=== PATIENT | male | born 1940 | race Caucasian/White ===

== ENCOUNTER 2020-08-01 16:24 | Inpatient (IN) ==
[2020-08-01 18:03] LABS: ABS Lymphocytes 0.6 10^3/ul (1.0-4.8); ABS Monocytes 0.5 10^3/ul (0-0.8); ABS Neutrophils 3.1 10^3/ul (1.5-7.7); Eosinophil % 0.1 %; Hematocrit 40 % (42-52); Hemoglobin 13.6 g/dL (14.0-18.0); Lymphocyte % 14.5 %; Mean Corpuscular HGB Conc 34 g/dL (31-36); Mean Corpuscular Hemoglobin 30 pg (27-31); Mean Corpuscular Volume 87 fL (80-94); Mean Platelet Volume 7.7 fL (7.4-10.4); Platelet Count 214 10^3/uL (150-450); Red Blood Count 4.61 10^6 /uL (4.18-5.48); Red Cell Distribution Width 15 % (10-15); White Blood Count 4.2 10^3/uL (3.5-10.8)
[2020-08-01 19:16] LABS: Potassium 4.8 mmol/L (3.5-5.0)
[2020-08-01 19:18] LABS: EGFR African American 90.1 (>60); EGFR Non-African American 74.5 (>60)
[2020-08-01 19:19] LABS: Albumin 3.6 g/dL (3.2-5.2); Calcium 9.1 mg/dL (8.6-10.3); Total Protein 6.5 g/dL (6.4-8.9)
[2020-08-01 19:21] LABS: Total Bilirubin 0.4 mg/dL (0.2-1.0)
[2020-08-01 19:25] LABS: BUN/Creatinine Ratio 27.8 (8-20)
[2020-08-01 19:26] LABS: Albumin/Globulin Ratio 1.3 (1-3); Globulin 2.8 g/dL (2-4)
[2020-08-01 20:40] LABS: Urine Appearance Cloudy; Urine Bilirubin Negative (Negative); Urine Blood Negative (Negative); Urine Color Yellow; Urine Glucose 1+(50 mg/dL) (Negative); Urine Ketones Negative (Negative); Urine Nitrite Negative (Negative); Urine Protein Negative (Negative); Urine Urobilinogen Negative (Negative)
[2020-08-01 20:46] LABS: Urine Bacteria Absent (Absent); Urine Red Blood Cell Absent (Absent); Urine White Blood Cell Trace(0-5/hpf) (Absent)
[2020-08-01] MEDS ORDERED: Ondansetron 4 mg VIAL 2 MG/ML 2 ml VIAL IV PRN (20:52)
[2020-08-01] MEDS ORDERED: Dextrose 50% Syringe 50 ml 25 GM/50 ML SYRINGE IV PUSH PRN (20:52)
[2020-08-01] MEDS ORDERED: Remdesivir 5 MG/ML LIQ IV Vial 200 MG in NS 0.9% 250 ml 210 ML IV ONE (20:52)
[2020-08-01] MEDS ORDERED: Albuterol 2.5mg/3 ml (0.083%) NEB.SOLN INH PRN (20:57)
[2020-08-01] MEDS ORDERED: NS 0.9% 1000 ml BAG 1,000 ML IV SCH (21:00)
[2020-08-01] MEDS ORDERED: Albuterol HFA INHALER 8 gm MDI INH PRN (21:12)
[2020-08-02] MEDS: Heparin 5000 UNITS/ML 1 mL VIAL SUBCUT SCH ×4 (00:50→21:14)
[2020-08-02] MEDS: Nystatin TOP POWDER 15 GM BTL TOPICAL SCH ×4 (00:50→21:14)
[2020-08-02 02:40] LABS: Activated Partial Thrombo Time 33.1 seconds (26.0-38.0); INR 1.21 (0.82-1.09)
[2020-08-02 06:38] LABS: ABS Lymphocytes 0.4 10^3/ul (1.0-4.8); ABS Monocytes 0.3 10^3/ul (0-0.8); ABS Neutrophils 5.7 10^3/ul (1.5-7.7); Hematocrit 41 % (42-52); Hemoglobin 13.8 g/dL (14.0-18.0); Lymphocyte % 6.5 %; Mean Corpuscular HGB Conc 34 g/dL (31-36); Mean Corpuscular Hemoglobin 29 pg (27-31); Mean Corpuscular Volume 87 fL (80-94); Mean Platelet Volume 8.1 fL (7.4-10.4); Nucleated Red Blood Cells % 0.1; Platelet Count 199 10^3/uL (150-450); Red Blood Count 4.69 10^6 /uL (4.18-5.48); Red Cell Distribution Width 15 % (10-15); White Blood Count 6.4 10^3/uL (3.5-10.8)
[2020-08-02 06:49] LABS: INR 1.21 (0.82-1.09)
[2020-08-02 06:51] LABS: Anion Gap 9 mmol/L (2-11); BUN/Creatinine Ratio 29.3 (8-20); Blood Urea Nitrogen 24 mg/dL (6-24); CO2 Carbon Dioxide 23 mmol/L (22-32); Calcium 8.8 mg/dL (8.6-10.3); Chloride 99 mmol/L (101-111); EGFR African American 109.4 (>60); EGFR Non-African American 90.4 (>60); Glucose 261 mg/dL (70-100); Potassium 4.7 mmol/L (3.5-5.0); Sodium 131 mmol/L (135-145)
[2020-08-02] MEDS: Mometasone/Formoter 100/5 MDI INH SCH ×2 (07:54→19:47)
[2020-08-02] MEDS: Insulin GLARGINE 100 un/ml 10 ml VIAL SUBCUT SCH ×2 (09:33→21:15)
[2020-08-02] MEDS: DULoxetine DR 30 mg CAP PO SCH (09:35)
[2020-08-02 10:07] LABS: C Reactive Protein 56.22 mg/L (<8.01)
[2020-08-02 10:09] LABS: Total Iron Binding Capacity 293 mcg/dL (250-450); Transferrin 209 mg/dL (203-362)
[2020-08-02 10:14] LABS: % Iron Saturation 7 % (15-55); Iron < 20 ug/dL (50-212); Unsaturated Iron Binding < 278 ug/dL
[2020-08-02 10:25] LABS: Ferritin 188.9 ng/mL (24-336)
[2020-08-02] MEDS: Remdesivir 5 MG/ML LIQ IV Vial 100 MG in NS 0.9% 250 ml 230 ML IV SCH (21:15)
[2020-08-03] MEDS: Heparin 5000 UNITS/ML 1 mL VIAL SUBCUT SCH ×3 (05:56→20:11)
[2020-08-03 08:08] LABS: ABS Lymphocytes 0.7 10^3/ul (1.0-4.8); ABS Monocytes 0.8 10^3/ul (0-0.8); ABS Neutrophils 5.5 10^3/ul (1.5-7.7); Hematocrit 39 % (42-52); Lymphocyte % 9.4 %; Mean Corpuscular HGB Conc 34 g/dL (31-36); Mean Corpuscular Hemoglobin 29 pg (27-31); Mean Corpuscular Volume 87 fL (80-94); Mean Platelet Volume 8.2 fL (7.4-10.4); Platelet Count 226 10^3/uL (150-450); Red Blood Count 4.48 10^6 /uL (4.18-5.48); Red Cell Distribution Width 15 % (10-15); White Blood Count 6.9 10^3/uL (3.5-10.8)
[2020-08-03] MEDS: Mometasone/Formoter 100/5 MDI INH SCH ×2 (08:17→20:16)
[2020-08-03 08:26] LABS: BUN/Creatinine Ratio 31.3 (8-20); Calcium 8.7 mg/dL (8.6-10.3); EGFR African American 107.9 (>60); EGFR Non-African American 89.1 (>60); Potassium 4.2 mmol/L (3.5-5.0)
[2020-08-03] MEDS: DULoxetine DR 30 mg CAP PO SCH (09:34)
[2020-08-03] MEDS: Insulin GLARGINE 100 un/ml 10 ml VIAL SUBCUT SCH ×2 (09:35→20:14)
[2020-08-03] MEDS: Nystatin TOP POWDER 15 GM BTL TOPICAL SCH ×3 (11:23→20:16)
[2020-08-03] MEDS: Remdesivir 5 MG/ML LIQ IV Vial 100 MG in NS 0.9% 250 ml 230 ML IV SCH (20:18)
[2020-08-04] MEDS: Heparin 5000 UNITS/ML 1 mL VIAL SUBCUT SCH ×3 (05:48→20:52)
[2020-08-04 07:07] LABS: ABS Lymphocytes 0.6 10^3/ul (1.0-4.8); ABS Monocytes 0.8 10^3/ul (0-0.8); ABS Neutrophils 4.9 10^3/ul (1.5-7.7); Hematocrit 39 % (42-52); Hemoglobin 13.3 g/dL (14.0-18.0); Lymphocyte % 9.7 %; Mean Corpuscular HGB Conc 34 g/dL (31-36); Mean Corpuscular Hemoglobin 29 pg (27-31); Mean Corpuscular Volume 86 fL (80-94); Mean Platelet Volume 8.7 fL (7.4-10.4); Platelet Count 241 10^3/uL (150-450); Red Blood Count 4.53 10^6 /uL (4.18-5.48); Red Cell Distribution Width 15 % (10-15); White Blood Count 6.3 10^3/uL (3.5-10.8)
[2020-08-04] MEDS: Mometasone/Formoter 100/5 MDI INH SCH ×2 (08:06→19:33)
[2020-08-04] MEDS: DULoxetine DR 30 mg CAP PO SCH (09:04)
[2020-08-04] MEDS: Insulin GLARGINE 100 un/ml 10 ml VIAL SUBCUT SCH ×2 (09:04→20:50)
[2020-08-04] MEDS: Nystatin TOP POWDER 15 GM BTL TOPICAL SCH ×3 (12:59→20:44)
[2020-08-04] MEDS ORDERED: Benzocaine/Menthol LOZ PO PRN (18:13)
[2020-08-04] MEDS: Remdesivir 5 MG/ML LIQ IV Vial 100 MG in NS 0.9% 250 ml 230 ML IV SCH (20:44)
[2020-08-04] MEDS ORDERED: Insulin GLARGINE 100 un/ml 10 ml VIAL SUBCUT SCH (21:00)
[2020-08-04] MEDS ORDERED: Dextrose 50% Syringe 50 ml 25 GM/50 ML SYRINGE IV PUSH PRN (21:31)
[2020-08-05] MEDS: Heparin 5000 UNITS/ML 1 mL VIAL SUBCUT SCH ×3 (05:38→20:56)
[2020-08-05] MEDS: Mometasone/Formoter 100/5 MDI INH SCH ×2 (07:51→21:35)
[2020-08-05] MEDS: DULoxetine DR 30 mg CAP PO SCH (08:33)
[2020-08-05] MEDS: Insulin GLARGINE 100 un/ml 10 ml VIAL SUBCUT SCH ×2 (08:38→20:49)
[2020-08-05] MEDS: Nystatin TOP POWDER 15 GM BTL TOPICAL SCH ×3 (08:39→21:40)
[2020-08-05] MEDS: Remdesivir 5 MG/ML LIQ IV Vial 100 MG in NS 0.9% 250 ml 230 ML IV SCH (20:56)
[2020-08-06] MEDS: Heparin 5000 UNITS/ML 1 mL VIAL SUBCUT SCH ×2 (05:14→12:43)
[2020-08-06] MEDS: Mometasone/Formoter 100/5 MDI INH SCH (08:16)
[2020-08-06] MEDS: Insulin GLARGINE 100 un/ml 10 ml VIAL SUBCUT SCH (09:52)
[2020-08-06] MEDS: DULoxetine DR 30 mg CAP PO SCH (09:53)
[2020-08-06] MEDS: Nystatin TOP POWDER 15 GM BTL TOPICAL SCH ×2 (10:51→12:45)
[2020-08-06 11:28] VITALS: BP 110/45
== END 2020-08-06 15:04 | disposition swing bed (61) | DRG 177 ==
LOC: ED 16:24 → MED 22:00 → MERGE 22:00 → MED 08-05 05:14
PROVIDERS: ADMIT Hospitalist; ATTEND Internal Medicine

== ENCOUNTER 2020-08-06 15:05 | Inpatient (IN) ==
[2020-08-06] MEDS ORDERED: Benzocaine/Menthol LOZ PO PRN (15:42)
[2020-08-06] MEDS ORDERED: Albuterol HFA INHALER 8 gm MDI INH PRN (15:52)
[2020-08-06] MEDS: Insulin GLARGINE 100 un/ml 10 ml VIAL SUBCUT SCH (20:12)
[2020-08-06] MEDS: Mometasone/Formoter 100/5 MDI INH SCH (20:15)
[2020-08-06] MEDS: Nystatin TOP POWDER 15 GM BTL TOPICAL SCH (20:18)
[2020-08-06] MEDS: Heparin 5000 UNITS/ML 1 mL VIAL SUBCUT SCH (21:39)
[2020-08-07] MEDS: Heparin 5000 UNITS/ML 1 mL VIAL SUBCUT SCH ×3 (05:35→20:49)
[2020-08-07] MEDS: Mometasone/Formoter 100/5 MDI INH SCH ×2 (07:32→20:06)
[2020-08-07] MEDS: DULoxetine DR 30 mg CAP PO SCH (10:38)
[2020-08-07] MEDS: Insulin GLARGINE 100 un/ml 10 ml VIAL SUBCUT SCH ×2 (10:39→22:00)
[2020-08-07] MEDS: Nystatin TOP POWDER 15 GM BTL TOPICAL SCH ×3 (12:01→20:46)
[2020-08-07] MEDS: Polyethylene Glycol 3350 17 GM PACKET PO PRN (17:05)
[2020-08-08] MEDS: Heparin 5000 UNITS/ML 1 mL VIAL SUBCUT SCH ×3 (05:19→20:11)
[2020-08-08] MEDS: DULoxetine DR 30 mg CAP PO SCH (07:33)
[2020-08-08] MEDS: Nystatin TOP POWDER 15 GM BTL TOPICAL SCH ×3 (07:33→20:11)
[2020-08-08] MEDS: Insulin GLARGINE 100 un/ml 10 ml VIAL SUBCUT SCH (08:26)
[2020-08-08] MEDS: Mometasone/Formoter 100/5 MDI INH SCH ×2 (09:11→19:45)
[2020-08-08] MEDS ORDERED: Insulin GLARGINE 100 un/ml 10 ml VIAL SUBCUT SCH (21:00)
[2020-08-09] MEDS: Heparin 5000 UNITS/ML 1 mL VIAL SUBCUT SCH ×3 (05:26→21:34)
[2020-08-09] MEDS: DULoxetine DR 30 mg CAP PO SCH (09:03)
[2020-08-09] MEDS: Nystatin TOP POWDER 15 GM BTL TOPICAL SCH ×3 (09:05→22:48)
[2020-08-09] MEDS ORDERED: Dextrose 50% Syringe 50 ml 25 GM/50 ML SYRINGE IV PUSH PRN (09:13)
[2020-08-09] MEDS: Mometasone/Formoter 100/5 MDI INH SCH ×2 (10:42→20:05)
[2020-08-09] MEDS: Insulin GLARGINE 100 un/ml 10 ml VIAL SUBCUT SCH ×2 (12:45→22:53)
[2020-08-10] MEDS: Heparin 5000 UNITS/ML 1 mL VIAL SUBCUT SCH ×3 (05:21→22:00)
[2020-08-10] MEDS: Mometasone/Formoter 100/5 MDI INH SCH ×2 (08:45→19:31)
[2020-08-10] MEDS: DULoxetine DR 30 mg CAP PO SCH (08:53)
[2020-08-10] MEDS: Insulin GLARGINE 100 un/ml 10 ml VIAL SUBCUT SCH ×2 (09:00→22:03)
[2020-08-10] MEDS: Nystatin TOP POWDER 15 GM BTL TOPICAL SCH ×3 (11:14→22:04)
[2020-08-10] MEDS: Polyethylene Glycol 3350 17 GM PACKET PO PRN ×2 (11:14→11:57)
[2020-08-11] MEDS: Heparin 5000 UNITS/ML 1 mL VIAL SUBCUT SCH ×3 (05:59→21:24)
[2020-08-11] MEDS: Mometasone/Formoter 100/5 MDI INH SCH ×2 (09:01→21:28)
[2020-08-11] MEDS: Dextrose 50% Syringe 50 ml 25 GM/50 ML SYRINGE IV PUSH PRN ×2 (09:20→16:34)
[2020-08-11] MEDS ORDERED: Piperacillin/Tazobac ADVAN 3.375 GM in NS 0.9% 100 ml BAG 100 ML IV ONE (10:54)
[2020-08-11] MEDS ORDERED: Zosyn per Pharmacy NOTE FOLLOW UP SCH (11:00)
[2020-08-11] MEDS: DULoxetine DR 30 mg CAP PO SCH (11:08)
[2020-08-11] MEDS: Insulin GLARGINE 100 un/ml 10 ml VIAL SUBCUT SCH (11:09)
[2020-08-11] MEDS: Nystatin TOP POWDER 15 GM BTL TOPICAL SCH ×3 (11:11→21:24)
[2020-08-11 12:20] LABS: Hematocrit 44 % (42-52); Hemoglobin 14.8 g/dL (14.0-18.0); Mean Corpuscular HGB Conc 34 g/dL (31-36); Mean Corpuscular Hemoglobin 29 pg (27-31); Mean Corpuscular Volume 87 fL (80-94); Mean Platelet Volume 7.2 fL (7.4-10.4); Platelet Count 414 10^3/uL (150-450); Red Blood Count 5.09 10^6 /uL (4.18-5.48); Red Cell Distribution Width 15 % (10-15)
[2020-08-11 12:34] LABS: Albumin 3.4 g/dL (3.2-5.2); Albumin/Globulin Ratio 0.9 (1-3); BUN/Creatinine Ratio 24.7 (8-20); C Reactive Protein 41.22 mg/L (<8.01); Calcium 9.3 mg/dL (8.6-10.3); EGFR African American 94.4 (>60); Globulin 3.7 g/dL (2-4); Potassium 4.4 mmol/L (3.5-5.0); Total Bilirubin 0.8 mg/dL (0.2-1.0); Total Protein 7.1 g/dL (6.4-8.9)
[2020-08-11] MEDS ORDERED: NS 0.9% IV SCH (13:00)
[2020-08-11 13:13] LABS: ABS Basophils 0.1 10^3/ul (0-0.2); ABS Eosinophils 0.3 10^3/ul (0-0.6); ABS Lymphocytes 0.6 10^3/ul (1.0-4.8); ABS Monocytes 2.5 10^3/ul (0-0.8); ABS Neutrophils 19.6 10^3/ul (1.5-7.7); Eosinophil % 1.1 %; Lymphocyte % 2.5 %
[2020-08-11] MEDS: ZOSYN 3.375 GM Q8H per EXTENDED INFUSION IV SCH ×2 (16:44→23:24)
[2020-08-11] MEDS ORDERED: Iodixanol (CONTRAST) 320 MG/ML 100 ML SDV IV ONE (19:51)
[2020-08-11] MEDS ORDERED: Insulin GLARGINE 100 un/ml 10 ml VIAL SUBCUT SCH (21:00)
[2020-08-11 21:11] LABS: Urine Appearance Clear; Urine Bilirubin Negative (Negative); Urine Blood Negative (Negative); Urine Color Yellow; Urine Glucose 1+(50 mg/dL) (Negative); Urine Ketones Negative (Negative); Urine Nitrite Negative (Negative); Urine Protein Negative (Negative); Urine Specific Gravity 1.016 (1.010-1.030); Urine Urobilinogen Negative (Negative)
[2020-08-11 21:12] LABS: Urine Bacteria Absent (Absent); Urine Red Blood Cell 1+(3-5/hpf) (Absent); Urine Squamous Epithelial Cell Present (Absent); Urine White Blood Cell 1+(6-10/hpf) (Absent)
[2020-08-12] MEDS: Heparin 5000 UNITS/ML 1 mL VIAL SUBCUT SCH ×2 (04:33→12:12)
[2020-08-12 08:12] LABS: Hematocrit 39 % (42-52); Mean Corpuscular HGB Conc 33 g/dL (31-36); Mean Corpuscular Hemoglobin 29 pg (27-31); Mean Corpuscular Volume 87 fL (80-94); Platelet Count 351 10^3/uL (150-450); Red Blood Count 4.49 10^6 /uL (4.18-5.48); Red Cell Distribution Width 16 % (10-15); White Blood Count 19.8 10^3/uL (3.5-10.8)
[2020-08-12 08:22] LABS: Albumin 3.1 g/dL (3.2-5.2); Albumin/Globulin Ratio 0.9 (1-3); BUN/Creatinine Ratio 20.4 (8-20); Calcium 8.5 mg/dL (8.6-10.3); EGFR African American 83.9 (>60); EGFR Non-African American 69.3 (>60); Globulin 3.4 g/dL (2-4); Potassium 4.6 mmol/L (3.5-5.0); Total Protein 6.5 g/dL (6.4-8.9)
[2020-08-12] MEDS: ZOSYN 3.375 GM Q8H per EXTENDED INFUSION IV SCH (08:42)
[2020-08-12] MEDS: DULoxetine DR 30 mg CAP PO SCH (08:43)
[2020-08-12] MEDS: Nystatin TOP POWDER 15 GM BTL TOPICAL SCH ×2 (08:44→12:17)
[2020-08-12] MEDS: Mometasone/Formoter 100/5 MDI INH SCH (09:04)
[2020-08-12 09:08] LABS: ABS Basophils 0.7 10^3/ul (0-0.2); ABS Eosinophils 0.4 10^3/ul (0-0.6); ABS Lymphocytes 0.9 10^3/ul (1.0-4.8); ABS Monocytes 1.7 10^3/ul (0-0.8); ABS Neutrophils 16.1 10^3/ul (1.5-7.7); Eosinophil % 1.9 %; Lymphocyte % 4.6 %
[2020-08-12 11:40] VITALS: BP 120/54
[2020-08-12] MEDS ORDERED: Insulin GLARGINE 100 un/ml 10 ml VIAL SUBCUT SCH (21:00)
== END 2020-08-12 15:22 | disposition short-term general hospital (02) | DRG 177 ==
LOC: MERGE 15:05 → MED 15:26
PROVIDERS: ADMIT Internal Medicine; ATTEND Internal Medicine

== ENCOUNTER 2020-08-12 15:54 | Inpatient (IN) ==
[2020-08-12] MEDS ORDERED: Benzocaine/Menthol LOZ PO PRN (16:12)
[2020-08-12] MEDS ORDERED: Albuterol HFA INHALER 8 gm MDI INH PRN (16:12)
[2020-08-12] MEDS ORDERED: Polyethylene Glycol 3350 17 GM PACKET PO PRN (16:18)
[2020-08-12] MEDS ORDERED: Dextrose 50% Syringe 50 ml 25 GM/50 ML SYRINGE IV PUSH PRN (16:19)
[2020-08-12] MEDS ORDERED: Piperacillin/Tazobac ADVAN 3.375 GM in NS 0.9% 100 ml BAG 100 ML IV ONE (17:00)
[2020-08-12] MEDS ORDERED: Zosyn per Pharmacy NOTE FOLLOW UP SCH (17:00)
[2020-08-12] MEDS: ZOSYN 3.375 GM Q8H per EXTENDED INFUSION IV SCH ×2 (17:35→23:15)
[2020-08-12] MEDS: Heparin 5000 UNITS/ML 1 mL VIAL SUBCUT SCH (20:51)
[2020-08-12] MEDS ORDERED: Insulin GLARGINE 100 un/ml 10 ml VIAL SUBCUT SCH (21:00)
[2020-08-12] MEDS ORDERED: Heparin 5000 UNITS/ML 1 mL VIAL SUBCUT SCH (22:00)
[2020-08-12] MEDS: Mometasone/Formoter 100/5 MDI INH SCH (22:09)
[2020-08-12] MEDS: Nystatin TOP POWDER 15 GM BTL TOPICAL SCH (22:30)
[2020-08-13] MEDS: ZOSYN 3.375 GM Q8H per EXTENDED INFUSION IV SCH ×3 (06:55→22:00)
[2020-08-13] MEDS: Heparin 5000 UNITS/ML 1 mL VIAL SUBCUT SCH ×3 (06:58→21:58)
[2020-08-13] MEDS: Mometasone/Formoter 100/5 MDI INH SCH ×2 (08:46→21:13)
[2020-08-13] MEDS: DULoxetine DR 30 mg CAP PO SCH (10:24)
[2020-08-13] MEDS: Insulin GLARGINE 100 un/ml 10 ml VIAL SUBCUT SCH ×2 (10:29→21:58)
[2020-08-13 12:37] LABS: ABS Eosinophils 0.3 10^3/ul (0-0.6); ABS Lymphocytes 0.8 10^3/ul (1.0-4.8); Eosinophil % 2.4 %; Hematocrit 44 % (42-52); Hemoglobin 14.8 g/dL (14.0-18.0); Lymphocyte % 7.3 %; Mean Corpuscular HGB Conc 33 g/dL (31-36); Mean Corpuscular Hemoglobin 30 pg (27-31); Mean Corpuscular Volume 89 fL (80-94); Mean Platelet Volume 7.6 fL (7.4-10.4); Nucleated Red Blood Cells % 0.2; Platelet Count 256 10^3/uL (150-450); Red Cell Distribution Width 16 % (10-15); White Blood Count 11.1 10^3/uL (3.5-10.8)
[2020-08-13] MEDS: Nystatin TOP POWDER 15 GM BTL TOPICAL SCH ×3 (12:55→21:58)
[2020-08-13 13:30] LABS: BUN/Creatinine Ratio 19.5 (8-20); C Reactive Protein 116.75 mg/L (<8.01); EGFR African American 109.1 (>60); EGFR Non-African American 90.2 (>60); Potassium 4.4 mmol/L (3.5-5.0)
[2020-08-13 15:32] LABS: Influenza A Molecular Negative (Negative); Influenza B Molecular Negative (Negative)
[2020-08-14] MEDS: ZOSYN 3.375 GM Q8H per EXTENDED INFUSION IV SCH ×3 (05:38→21:05)
[2020-08-14] MEDS: Heparin 5000 UNITS/ML 1 mL VIAL SUBCUT SCH ×3 (05:38→21:07)
[2020-08-14] MEDS: Mometasone/Formoter 100/5 MDI INH SCH ×2 (08:55→19:36)
[2020-08-14] MEDS: Nystatin TOP POWDER 15 GM BTL TOPICAL SCH ×3 (09:54→21:04)
[2020-08-14] MEDS: DULoxetine DR 30 mg CAP PO SCH (09:54)
[2020-08-14] MEDS: Insulin GLARGINE 100 un/ml 10 ml VIAL SUBCUT SCH ×2 (09:57→21:07)
[2020-08-15] MEDS: ZOSYN 3.375 GM Q8H per EXTENDED INFUSION IV SCH ×3 (05:08→22:36)
[2020-08-15] MEDS: Heparin 5000 UNITS/ML 1 mL VIAL SUBCUT SCH ×3 (05:09→22:32)
[2020-08-15 06:22] LABS: ABS Basophils 0.1 10^3/ul (0-0.2); ABS Eosinophils 0.2 10^3/ul (0-0.6); ABS Lymphocytes 1.4 10^3/ul (1.0-4.8); ABS Monocytes 1.5 10^3/ul (0-0.8); ABS Neutrophils 8.5 10^3/ul (1.5-7.7); Eosinophil % 1.8 %; Hematocrit 40 % (42-52); Hemoglobin 13.4 g/dL (14.0-18.0); Lymphocyte % 11.6 %; Mean Corpuscular HGB Conc 34 g/dL (31-36); Mean Corpuscular Hemoglobin 29 pg (27-31); Mean Corpuscular Volume 86 fL (80-94); Mean Platelet Volume 7.3 fL (7.4-10.4); Platelet Count 370 10^3/uL (150-450); Red Cell Distribution Width 16 % (10-15); White Blood Count 11.7 10^3/uL (3.5-10.8)
[2020-08-15 06:38] LABS: BUN/Creatinine Ratio 18.4 (8-20); C Reactive Protein 37.41 mg/L (<8.01); Calcium 9.1 mg/dL (8.6-10.3); EGFR African American 101.9 (>60); EGFR Non-African American 84.2 (>60); Potassium 4.1 mmol/L (3.5-5.0)
[2020-08-15] MEDS: Mometasone/Formoter 100/5 MDI INH SCH ×3 (08:43→19:53)
[2020-08-15] MEDS: DULoxetine DR 30 mg CAP PO SCH (08:55)
[2020-08-15] MEDS: Insulin GLARGINE 100 un/ml 10 ml VIAL SUBCUT SCH ×2 (08:56→22:32)
[2020-08-15] MEDS: Nystatin TOP POWDER 15 GM BTL TOPICAL SCH ×3 (08:57→22:33)
[2020-08-15 20:02] LABS: Adenovirus Negative (Negative); Bordetella parapertussis Negative (Negative); Bordetella pertussis Negative (Negative); Chlamydophila pneumoniae Negative (Negative); Coronavirus 229E Negative (Negative); Coronavirus HKU1 Negative (Negative); Coronavirus NL63 Negative (Negative); Coronavirus OC43 Negative (Negative); Human Metapneumovirus Negative (Negative); Human Rhinovirus/ Enterovirus Negative (Negative); Influenza A Negative (Negative); Influenza B Negative (Negative); Mycoplasmoides pneumoniae Negative (Negative); Parainfluenza Virus 1 Negative (Negative); Parainfluenza Virus 2 Negative (Negative); Parainfluenza Virus 3 Negative (Negative); Parainfluenza Virus 4 Negative (Negative); Respiratory Syncytial Virus Negative (Negative); Specimen Source NASOPHARYNGEAL SWAB
[2020-08-16] MEDS: Heparin 5000 UNITS/ML 1 mL VIAL SUBCUT SCH (05:18)
[2020-08-16] MEDS: ZOSYN 3.375 GM Q8H per EXTENDED INFUSION IV SCH (05:19)
[2020-08-16] MEDS: Mometasone/Formoter 100/5 MDI INH SCH (07:46)
[2020-08-16] MEDS: Insulin GLARGINE 100 un/ml 10 ml VIAL SUBCUT SCH (09:40)
[2020-08-16] MEDS: DULoxetine DR 30 mg CAP PO SCH (09:40)
[2020-08-16] MEDS: Nystatin TOP POWDER 15 GM BTL TOPICAL SCH (09:42)
[2020-08-16 13:25] VITALS: BP 133/60
== END 2020-08-16 11:40 | DRG 871 ==
LOC: MERGE 16:35 → MED 16:35
PROVIDERS: ADMIT Internal Medicine; ATTEND Student in an Organized Health Care Education/Training Program